=== PATIENT | male | born 1990 | race Caucasian/White ===

== ENCOUNTER 2019-04-30 22:54 | Emergency (ER) | payer OTHER ==
[~2019-04-30] VITALS: Ht 180.3 cm; Wt 70.3 kg
[~2019-04-30 22:54] MED LIST: AMOX500 PO; ATOM25 PO; ATOM40 PO; CEPH500 PO; ESCI20 PO; HYDACE5 PO; HYDACE5325 PO; HYDPAM25 PO; IBUP800 PO; INCARCERATION; METPHE10; NAPR500 PO; Naprosyn500 MG PO; PRED20 PO; RXHYDACE PO; RXTRAM50 PO; SERT100; SULTRIDS PO; TRAM50 PO; Veetids 500500 MG PO; Zovirax400 MG PO
[2019-05-01] MEDS ORDERED: Cleocin HCl300 MG PO (00:07)
[2019-05-01] MEDS ORDERED: KETO10 PO (00:07)
== END 2019-05-01 00:18 | disposition home or self-care (01) ==
LOC: ER 22:54
DX: K04.01 Reversible pulpitis (principal); K02.9 Dental caries, unspecified; Z88.0 Allergy status to penicillin; Z79.899 Other long term (current) drug therapy; F17.200 Nicotine dependence, unspecified, uncomplicated
CPT/HCPCS: 99283

== ENCOUNTER 2019-09-03 22:01 | Emergency (ER) | payer OTHER ==
[~2019-09-03] VITALS: Ht 180.3 cm; Wt 68.0 kg
[~2019-09-03 22:01] MED LIST changes: +Cleocin HCl300 MG PO; +KETO10 PO
[2019-09-03] MEDS ORDERED: Keflex500 MG PO (22:57)
[2019-09-03] MEDS ORDERED: Bactrim Ds Tab1 EACH PO (22:57)
== END 2019-09-03 23:09 | disposition home or self-care (01) ==
LOC: ER 22:01
DX: L02.413 Cutaneous abscess of right upper limb (principal); F11.90 Opioid use, unspecified, uncomplicated; F17.200 Nicotine dependence, unspecified, uncomplicated
CPT/HCPCS: 10060; 99283-25; A9270-GY

== ENCOUNTER 2019-09-20 22:20 | Emergency (ER) | payer OTHER ==
[~2019-09-20 22:20] MED LIST changes: +Bactrim Ds Tab1 EACH PO; +Keflex500 MG PO
== END 2019-09-20 23:10 | disposition left against medical advice (07) ==
LOC: ER 22:20
DX: Z53.21 Procedure and treatment not carried out due to patient leaving prior to being seen by health care provider (principal)

== ENCOUNTER 2021-10-21 21:15 | Emergency (ER) | payer OTHER ==
[~2021-10-21] VITALS: Ht 182.9 cm; Wt 68.0 kg
[2021-10-21] MEDS ORDERED: METH40 (21:51)
== END 2021-10-21 21:55 | disposition home or self-care (01) ==
LOC: ER 21:15
DX: J06.9 Acute upper respiratory infection, unspecified (principal); Z20.822 Contact with and (suspected) exposure to COVID-19; F17.200 Nicotine dependence, unspecified, uncomplicated
CPT/HCPCS: 99283

== ENCOUNTER 2025-02-03 18:33 | Emergency (ER) | payer OTHER ==
[~2025-02-03] VITALS: Ht 180.3 cm; Wt 52.6 kg
[~2025-02-03 18:33] MED LIST changes: +METH40
[2025-02-03 19:07] VITALS: BP 142/85
== END 2025-02-03 20:48 | disposition other institution (70) ==
LOC: ER 18:33
DX: M79.644 Pain in right finger(s) (principal); F17.210 Nicotine dependence, cigarettes, uncomplicated; Z88.0 Allergy status to penicillin; Z79.899 Other long term (current) drug therapy
CPT/HCPCS: 73130; 99283-25